=== PATIENT | male | born 1950 | race Caucasian/White ===

== ENCOUNTER 2022-01-15 09:02 | Outpatient (CLI) | payer MEDICARE, SELFPAY ==
[2022-01-15 19:46] LABS: Alanine Aminotransferase 24 U/L (6-50); Albumin Level 4.6 g/dL (3.5-5.1); Alkaline Phosphatase 68 U/L (38-126); Anion Gap 14 mmol/L (8-16); Aspartate Amino Transferase 29 U/L (17-59); Bilirubin,Total 0.9 mg/dL (0.2-1.3); Blood Urea Nitrogen 19 mg/dL (9-20); Calcium 9.5 mg/dL (8.4-10.2); Carbon Dioxide 23 mmol/L (22-30); Chloride 101 mmol/L (98-107); Cholesterol 140 mg/dL (0-200); Estimated Glomerular Filt Rate 54; Glucose 100 mg/dL (65-110); HDL Direct 41 mg/dL; Potassium 3.3 mmol/L (3.4-5.0); Sodium 138 mmol/L (137-145); Triglycerides 95 mg/dL (<150)
[2022-01-15 20:01] LABS: LDL Cholesterol Direct 70 mg/dL
== END 2022-01-15 09:03 | disposition home or self-care (01) ==
PROVIDERS: PCP Family Medicine; Visit Provider Nurse Practitioner Family
DX: E78.5 Hyperlipidemia, unspecified (principal); I10 Essential (primary) hypertension
CPT/HCPCS: 36415; 80053; 80061

== ENCOUNTER 2022-02-11 08:47 | Outpatient (CLI) | payer MEDICARE, SELFPAY ==
[2022-02-11 19:50] LABS: Anion Gap 11 mmol/L (8-16); Blood Urea Nitrogen 15 mg/dL (9-20); Calcium 9.3 mg/dL (8.4-10.2); Carbon Dioxide 25 mmol/L (22-30); Chloride 104 mmol/L (98-107); Estimated Glomerular Filt Rate 60; Glucose 97 mg/dL (65-110); Potassium 3.9 mmol/L (3.4-5.0); Sodium 140 mmol/L (137-145)
== END 2022-02-11 08:48 | disposition home or self-care (01) ==
PROVIDERS: PCP Family Medicine; Visit Provider Nurse Practitioner Family
DX: E87.6 Hypokalemia (principal)
CPT/HCPCS: 36415; 80048

== ENCOUNTER 2022-07-19 09:32 | Outpatient (CLI) | payer MEDICARE, SELFPAY ==
[2022-07-19 18:15] LABS: Basophils Absolute Auto 0.1 K/mm3 (0.0-0.1); Basophils Percent Auto 1.6 % (0.2-1.2); Eosinophils Absolute Auto 0.3 K/mm3 (0-0.3); Eosinophils Percent Auto 3.8 % (0-4.4); Hemoglobin 16.1 g/dL (14.0-18.0); Immature Granulocyte Absolute 0.03 K/mm3 (0.00-0.031); Immature Granulocyte Percent A 0.3 % (0-0.5); Lymphocytes Absolute Auto 2.82 K/mm3 (0.9-3.2); Lymphocytes Percent Auto 31.3 % (18.3-44.2); Mean Corpuscular Hemoglobin 31.1 pg (26-34); Monocytes Absolute Auto 0.9 K/mm3 (0.1-0.6); Neutrophils Absolute Auto 4.8 K/mm3 (1.3-6.7); Platelet Count Result 184 k/mm3 (150-375); Red Blood Count 5.17 M/mm3 (4.6-6.20); Red Cell Distribution Width 13.3 % (11.5-14.5)
[2022-07-19 18:47] LABS: Hemoglobin A1C 5.7 % (<5.7)
[2022-07-19 19:00] LABS: Alanine Aminotransferase 26 U/L (6-50); Albumin Level 4.4 g/dL (3.5-5.1); Alkaline Phosphatase 65 U/L (38-126); Anion Gap 4 mmol/L (8-16); Aspartate Amino Transferase 33 U/L (17-59); Bilirubin,Total 1.3 mg/dL (0.2-1.3); Blood Urea Nitrogen 18 mg/dL (9-20); Calcium 9.3 mg/dL (8.4-10.2); Carbon Dioxide 34 mmol/L (22-30); Chloride 100 mmol/L (98-107); Cholesterol 152 mg/dL (0-200); Estimated Glomerular Filt Rate 60; Glucose 102 mg/dL (65-110); HDL Direct 39 mg/dL; Potassium 3.9 mmol/L (3.4-5.0); Sodium 138 mmol/L (137-145); Triglycerides 104 mg/dL (<150)
[2022-07-19 19:21] LABS: LDL Cholesterol Direct 84 mg/dL
== END 2022-07-19 09:33 | disposition home or self-care (01) ==
LOC: ANHGOSHLAB 09:33
PROVIDERS: PCP Family Medicine; Visit Provider Nurse Practitioner Family
DX: I10 Essential (primary) hypertension (principal); E78.5 Hyperlipidemia, unspecified; R73.03 Prediabetes
CPT/HCPCS: 36415; 80053; 80061; 83036; 84443; 85025

== ENCOUNTER 2023-01-22 09:39 | Outpatient (CLI) | payer MEDICARE, SELFPAY ==
[2023-01-22 18:53] LABS: Basophils Absolute Auto 0.1 K/mm3 (0.0-0.1); Basophils Percent Auto 1.4 % (0.2-1.2); Eosinophils Absolute Auto 0.3 K/mm3 (0-0.3); Eosinophils Percent Auto 2.8 % (0-4.4); Hematocrit 47.4 % (42.0-52.0); Immature Granulocyte Absolute 0.02 K/mm3 (0.00-0.031); Immature Granulocyte Percent A 0.2 % (0-0.5); Lymphocytes Percent Auto 27.5 % (18.3-44.2); Mean Corpuscular HGB Conc 33.8 g/dl (32-36); Mean Corpuscular Volume 91.9 fl (80-100); Mean Platelet Volume 11.1 fl (7.4-10.4); Monocytes Absolute Auto 0.8 K/mm3 (0.1-0.6); Monocytes Percent Auto 8.5 % (2.6-8.5); Neutrophils Absolute Auto 5.6 K/mm3 (1.3-6.7); Neutrophils Percent Auto 59.6 % (45.5-73.1); Platelet Count Result 200 k/mm3 (150-375); Red Blood Count 5.16 M/mm3 (4.6-6.20); Red Cell Distribution Width 13.4 % (11.5-14.5); White Blood Count 9.5 K/mm3 (4.5-10.0)
[2023-01-22 19:54] LABS: Alanine Aminotransferase 33 U/L (6-50); Albumin Level 4.7 g/dL (3.5-5.1); Alkaline Phosphatase 61 U/L (38-126); Anion Gap 6 mmol/L (8-16); Aspartate Amino Transferase 47 U/L (17-59); Blood Urea Nitrogen 16 mg/dL (9-20); Calcium 9.6 mg/dL (8.4-10.2); Carbon Dioxide 32 mmol/L (22-30); Chloride 99 mmol/L (98-107); Cholesterol 152 mg/dL (0-200); Estimated Glomerular Filt Rate 60; Glucose 107 mg/dL (65-110); HDL Direct 46 mg/dL; Potassium 4.1 mmol/L (3.4-5.0); Sodium 137 mmol/L (137-145); Triglycerides 88 mg/dL (<150)
[2023-01-22 20:04] LABS: LDL Cholesterol Direct 80 mg/dL
[2023-01-22 20:25] LABS: Hemoglobin A1C 5.5 % (<5.7)
[2023-01-26 14:43] LABS: Vitamin D 1,25 (OH)2 Total 38 pg/mL (18-72); Vitamin D2 1,25 (OH)2 <8 pg/mL; Vitamin D3 1,25 (OH)2 38 pg/mL
== END 2023-01-22 09:40 | disposition home or self-care (01) ==
PROVIDERS: PCP Family Medicine; Visit Provider Nurse Practitioner Family
DX: E55.9 Vitamin D deficiency, unspecified (principal); E11.9 Type 2 diabetes mellitus without complications; I10 Essential (primary) hypertension
CPT/HCPCS: 36415; 80053; 80061; 82652; 83036; 85025

== ENCOUNTER 2023-04-14 12:15 | Outpatient (CLI) | payer MEDICARE, SELFPAY ==
--- NOTE | 2023-04-14 12:36 | ECG_ITS ---
Measurements Intervals Fisher Rate: 82 P: 56 TN: 214 QRS: -8 QRSD: 153 T: 80 QT: 396 QTc: 463 Interpretive Statements SINUS RHYTHM WITH FIRST DEGREE AV BLOCK LEFT BUNDLE BRANCH BLOCK ABNORMAL ECG NO PREVIOUS ECG AVAILABLE FOR COMPARISON Electronically Signed On 04-14-2023 12:52:37 SCREW MACHINE SET UP OPERATOR TOOL by Warren Bartholomew D.O.
[2023-04-14 13:49] LABS: Anion Gap 10 mmol/L (8-16); Blood Urea Nitrogen 15 mg/dL (9-20); Calcium 9.2 mg/dL (8.4-10.2); Carbon Dioxide 26 mmol/L (22-30); Chloride 102 mmol/L (98-107); Estimated Glomerular Filt Rate 59; Glucose 117 mg/dL (65-110); Potassium 3.5 mmol/L (3.4-5.0); Sodium 138 mmol/L (137-145)
== END 2023-04-14 12:16 | disposition home or self-care (01) ==
LOC: ANHSURGERY 12:20
PROVIDERS: Anesthesiology; PCP Family Medicine; Visit Provider Plastic Surgery
DX: Z01.818 Encounter for other preprocedural examination (principal); I10 Essential (primary) hypertension
CPT/HCPCS: 36415; 80048; 93005

== ENCOUNTER 2023-04-16 00:53 | Day surgery (SDC) | payer MEDICARE, SELFPAY ==
--- NOTE | 2023-04-14 10:07 | PC.NURSE ---
Report to the Outpatient Waiting Room, entrance under the green pavilion located off [facility], at time __0600 on date ___04/16/23____. Planned Procedure Time: _0730 . Time changes happen often and if your time is changed the preop area will call you the afternoon before. - You and your visitor will be asked to self-screen and do not enter if you have any COVID symptoms. - A mask is optional within the hospital at this time. Patients may have clear liquids (water, carbonated beverages, clear teas, apple juice) until 3 hours prior to surgery( 4:30 AM ) with a maximum of 20 ounces. - No food from midnight until time of surgery - Infants may have breast milk until 4 hours before surgery, infant formula 6 hours prior to surgery. - Children will be allowed to drink immediately following surgery. If applicable, please bring a bottle or sippy cup to assist with drinking. Juice, water, soda, and popsicles are readily available. For infants on formula, please bring formula the day of surgery. Pacifiers are allowed. Take the following medications with a SIP of water the morning of surgery: ___NONE DO NOT STOP ANY OF YOUR OTHER PRESCRIPTION MEDICATIONS PRIOR TO SURGERY ?EXCEPT THE FOLLOWING Medications to discontinue per physician HOLD MULTIVITAMIN 3 DAYS PRE OP LAST DOSE 04/13/23 Please no make-up, nail macedonian, hairspray, perfume, deodorant, or body powder the day of surgery. No jewelry (including any body piercings) or valuables the day of surgery, leave them at home. Please take a shower or bath the night before, or the morning of, surgery with an antibacterial soap. Wear comfortable, loose fitting clothing. Children are encouraged to wear pajamas. - Jewelry must be removed prior to entering the operating room. Rings and piercings that are not removed may be cut off. - The hospital will not accept responsibility for valuables. - Please leave all valuables, including medications, at home the day of surgery. If you are going home after surgery, a licensed semi driver must drive you home. - NO public transportation without another adult if you receive anesthesia. - We recommend that an adult stay with you for 24 hours following discharge. - We also recommend that you do not drive, make important decision, drink alcoholic beverages, or take any drugs that were not prescribed by your health care provider for at least 24 hours after your discharge time. Follow any additional instructions given to you from your surgeon. If you or anyone in your household have experienced Covid symptoms in the past week, please notify your surgeon or the nurse liaison at the phone number below for possible testing. Telephone instructions given to __PATIENT and asked if any additional questions and then verbalized understanding. Patient advised to call surgeon office or pre surgery nurse liaison [phone] if any additional questions.
[2023-04-14 10:19] VITALS: BMI 21.9
[2023-04-16 06:14] VITALS: BP 125/71; PULSE 89; RESP 18; TEMP 36.3; O2SAT 98
--- NOTE | 2023-04-16 06:55 | P.PNAN_ITS ---
Anes - Initial Pre Proc Eval Procedure: Operation Date: 04/16/23 07:30 Proposed Procedures p Right Partial Palmar Fasciectomy - Gregorio Camp MD Date/Time: 04/16/23 06:55 Surgeon: Gregorio Camp MD Pre Op Diagnosis: Dupuytren's contracture Rt 5th Finger Patient Data Age: 73 Gender: M Height: 1.79 m Weight: 70.35 kg Allergies Allergy/AdvReac Type Severity Reaction Status Date / Time No Known Allergies Allergy Unknown Verified 04/14/23 10:02 Home Medications Medication Instructions Recorded Confirmed Type multivitamin 1 tablet PO DAILY 01/11/20 04/14/23 History simvastatin 20 mg tablet 20 mg PO DAILY #90 tabs 01/22/23 04/14/23 Rx valsartan 160 1 tablet PO DAILY #90 tabs 01/22/23 04/14/23 Rx mg-hydrochlorothiazide 25 mg tablet Patient hx anesthesia problems: none Family hx anesthesia problems: none Results Review: All pre-operative results and documents have been reviewed as part of the pre- operative evaluation. [facility] Past Medical History Medical History Benign essential hypertension Combined hyperlipidemia Former smoker History of prostate cancer Prediabetes Surgical History Surgical History History of prostatectomy (~03/2008) Social History Social History Social History: Caffeine-very little 3 cups weekly Smoking packs per day: 1 Smoking cigarettes per day: 20.0 Years smoked: 50 Smoking pack-years: 50.00 Smoking status: Current every day smoker Tobacco type: cigarettes Second hand tobacco smoke exposure: No Alcohol intake: current Substance use: never Substance use type: does not use Lack of Transportation: No Lack of Food: Never True Current Housing: I Have Housing Concerned About Future Housing: No Difficulty Paying Gas/Electric Bills: No Difficulty Paying for Meds: No Currently Unemployed: No Education: Associate Degree Difficulty w/ Childcare or Family Care: No Living arrangements: with family Occupation/Education: retired Gender identity (if verbalized by the patient): Male Spiritual care concerns: No Agree to blood products: Yes Anes - Eval Final PreProcedure Day of Procedure 04/16/23 06:55 Patient weight: normal Heart: regular rate and rhythm Lungs: clear to auscultation Airway: Mallampati scale class II Neurological: alert and oriented Last oral intake: >/= 8 hours ASA classification: III Emergent: no Anesthetic plan: proceed Anesthesia type and monitoring: general GIVS and standard monitoring Results Review: All pre-operative results and documents have been reviewed as part of the pre- operative evaluation. Informed Consent: The patient's anesthetic plan and its attendant risks and benefits were discussed with the patient/family/POA. Questions were solicited and answers provided to the satisfaction of the patient/family/POA.
--- NOTE | 2023-04-16 07:09 | WPDHPUPDATE1 ---
History and Physical Update Update Date/Time: 04/16/23 07:09 History and Physical has been reviewed, including an updated exam of the patient. There are NO changes in the patient's condition. Risks, benefits, and alternatives have been discussed and questions answered. Patient agrees to proceed with procedure.
[2023-04-16] MEDS: LACTATED RINGERS 1,000 ML 30 ML IV CONT ×2 (07:11→08:47)
[2023-04-16] MEDS: LIDO 1%/EPINEPHRINE 1:100,000 20 ML VIAL INFILTRATE (07:49)
[2023-04-16] MEDS: BACITRACIN OINTMENT 15 GM TUBE 1 APPLIC TOPICAL (08:16)
[2023-04-16 08:47] VITALS: BP 108/62; PULSE 94; RESP 12; TEMP 36.2; O2SAT 98
[2023-04-16 09:00] VITALS: BP 108/84; PULSE 88; RESP 17; O2SAT 95
--- NOTE | 2023-04-16 09:02 | P.OP_ITS ---
Procedure Note - Detailed Date of Procedure 04/16/23 Pre-op Diagnosis Dupuytren's contracture Rt 5th Finger Post-op Diagnosis Same Procedure Performed Right partial palmar fasciectomy Surgeon Gregorio Camp MD Scow Derrick Operator Ruddy Jiang MAC Indications Contractures of the and the proximal interphalangeal joints of the right 5th finger Description of Procedure The site was marked on the hand in the holding area. He was then taken to the operating room placed supine on the operating table. He was given IV sedation with an LMA. The right upper extremity was prepped draped in usual fashion a pneumatic tourniquet was applied. The hand was examined markings made for the incision. The time-out was held and confirmed. The extremity was exsanguinated with an Kit wrap and the tourniquet was inflated to 250 mmHg.. A small beltran sverse incision was made proximal to the distal palmar crease. The pretendinous cord was dissected both directions and finally released. The neurovascular bundle to the radial side was identified and preserved. Some palmar fascia directed to the ring finger was also resected. Our 2nd incision was a midline volar 5th digit incision that was extended proximally in Hermilo fashion but did not connect to the former incision. Skin flaps were elevated. The neurovascular bundles identified and preserved. Multiple cords were identified including and pretendinous, ulnar retrovascular, spiral cords to both sides. As we resected these, the tendon to the abductor digiti minimi was left intact. The digit could be fully extended. The tourniquet was released and wounds closed with 4-0 nylon suture. A soft bandage was applied. Patient was discharged from the operating room stable condition. He is being discharged with instructions in wound care and follow-up and a prescription for hydrocodone 5/325 5. Estimated Blood Loss 6 Tourniquet Time Total Tourniquet Time: 40 Drains No Packing No Pathology None sent Complications No immediate complications Condition Stable Disposition PACU
[2023-04-16 09:14] VITALS: BP 123/72; PULSE 87; RESP 17; O2SAT 95
[2023-04-16] MEDS: ACETAMINOPHEN 500 MG TABLET PO (09:29)
[2023-04-16 09:45] VITALS: BP 122/82; PULSE 92; RESP 18
== END 2023-04-16 10:04 | disposition home or self-care (01) ==
PROVIDERS: PCP Family Medicine; Visit Provider Plastic Surgery
PROC: (CPT 26045; principal; 2023-04-16 07:30)
DX: M72.0 Palmar fascial fibromatosis [Dupuytren] (principal); I10 Essential (primary) hypertension; E78.2 Mixed hyperlipidemia; R73.03 Prediabetes; Z85.46 Personal history of malignant neoplasm of prostate; F17.210 Nicotine dependence, cigarettes, uncomplicated
CPT/HCPCS: 26123; 36415; 80048; 93005; A9270; J1100; J1596; J2250; J2371; J2405; J2704; J3010; J7120

== ENCOUNTER 2023-06-11 01:06 | Day surgery (SDC) | payer MEDICARE, SELFPAY ==
--- NOTE | 2023-06-02 10:00 | PC.NURSE ---
Report to the Outpatient Waiting Room, entrance under the green pavilion located off [facility], at time _0600 on date __06/11/23 . Planned Procedure Time: ___729 . Time changes happen often and if your time is changed the preop area will call you the afternoon before. - You and your visitor will be asked to self-screen and do not enter if you have any COVID symptoms. - A mask is optional within the hospital at this time. Patients may have clear liquids (water, carbonated beverages, clear teas, apple juice) until 3 hours prior to surgery( 4:30 AM) with a maximum of 20 ounces. - No food from midnight until time of surgery - Infants may have breast milk until 4 hours before surgery, infant formula 6 hours prior to surgery. - Children will be allowed to drink immediately following surgery. If applicable, please bring a bottle or sippy cup to assist with drinking. Juice, water, soda, and popsicles are readily available. For infants on formula, please bring formula the day of surgery. Pacifiers are allowed. Take the following medications with a SIP of water the morning of surgery: NONE DO NOT STOP ANY OF YOUR OTHER PRESCRIPTION MEDICATIONS PRIOR TO SURGERY ?EXCEPT THE FOLLOWING Medications to discontinue per physician ___HOLD MULTIVITAMIN 3 DAYS PRE OP.LAST DOSE 06/07/23 Please no make-up, nail faroese, hairspray, perfume, deodorant, or body powder the day of surgery. No jewelry (including any body piercings) or valuables the day of surgery, leave them at home. Please take a shower or bath the night before, or the morning of, surgery with an antibacterial soap. Wear comfortable, loose fitting clothing. Children are encouraged to wear pajamas. - Jewelry must be removed prior to entering the operating room. Rings and piercings that are not removed may be cut off. - The hospital will not accept responsibility for valuables. - Please leave all valuables, including medications, at home the day of surgery. If you are going home after surgery, a licensed wedding transportation driver must drive you home. - NO public transportation without another adult if you receive anesthesia. - We recommend that an adult stay with you for 24 hours following discharge. - We also recommend that you do not drive, make important decision, drink alcoholic beverages, or take any drugs that were not prescribed by your health care provider for at least 24 hours after your discharge patricia Follow any additional instructions given to you from your surgeon. If you or anyone in your household have experienced Covid symptoms in the past week, please notify your surgeon or the nurse liaison at the phone number below for possible testing. Telephone instructions given to ___PATIENT and asked if any additional questions and then verbalized understanding. Patient advised to call surgeon office or pre surgery nurse liaison [phone] if any additional questions.
[2023-06-02 10:04] VITALS: BMI 21.9
[2023-06-11 06:06] VITALS: BP 127/71; PULSE 82; RESP 20; TEMP 36.9; O2SAT 97
[2023-06-11] MEDS: LACTATED RINGERS 1,000 ML 30 ML IV CONT (06:30)
--- NOTE | 2023-06-11 07:05 | WPDANESEPPF ---
Anes - Initial Pre Proc Eval Procedure: Operation Date: 06/11/23 07:30 Proposed Procedures p Left Partial Palmar Fasciectomy - Gregorio Camp MD Date/Time: 06/11/23 07:05 Surgeon: Gregorio Camp MD Pre Op Diagnosis: duputrens contracture left fifth finger Patient Data Age: 73 Gender: M Height: 1.79 m Weight: 72 kg Last Vital Signs Temp 98.5 F 06/11/23 06:06 Pulse 82 06/11/23 06:06 Resp 20 06/11/23 06:06 BP 127/71 06/11/23 06:06 Pulse Ox 97 06/11/23 06:06 O2 Del Method Room Air 06/11/23 06:06 Allergies Allergy/AdvReac Type Severity Reaction Status Date / Time No Known Allergies Allergy Unknown Verified 06/11/23 06:05 Home Medications Medication Instructions Recorded Confirmed Type multivitamin 1 tablet PO DAILY 01/11/20 06/11/23 History simvastatin 20 mg tablet 20 mg PO DAILY #90 tabs 01/22/23 06/11/23 Rx valsartan 160 1 tablet PO DAILY #90 tabs 01/22/23 06/11/23 Rx mg-hydrochlorothiazide 25 mg tablet hydrocodone 5 mg-acetaminophen 325 1 tablet PO Q6H PRN pain #5 tabs 04/16/23 06/02/23 Rx mg tablet Patient hx anesthesia problems: none Family hx anesthesia problems: none Results Review: All pre-operative results and documents have been reviewed as part of the pre-operative evaluation. [facility] Past Medical History Medical History Benign essential hypertension Combined hyperlipidemia Former smoker History of prostate cancer Prediabetes Surgical History Surgical History History of prostatectomy (~03/2008) Social History Social History Social History: Caffeine-very little 3 cups weekly Smoking packs per day: 1 Smoking cigarettes per day: 20.0 Years smoked: 50 Smoking pack-years: 50.00 Smoking status: Current every day smoker Tobacco type: cigarettes Second hand tobacco smoke exposure: No Alcohol intake: current Substance use: never Substance use type: does not use Lack of Transportation: No Lack of Food: Never True Current Housing: I Have Housing Concerned About Future Housing: No Difficulty Paying Gas/Electric Bills: No Difficulty Paying for Meds: No Currently Unemployed: No Education: Associate Degree Difficulty w/ Childcare or Family Care: No Living arrangements: with family Occupation/Education: retired Gender identity (if verbalized by the patient): Male Spiritual care concerns: No Agree to blood products: Yes Anes - Eval Final PreProcedure Day of Procedure 06/11/23 07:05 Patient weight: normal Heart: regular rate and rhythm Lungs: clear to auscultation Airway: Mallampati scale class III Neurological: alert and oriented Last oral intake: >/= 8 hours ASA classification: III Emergent: no Anesthetic plan: proceed Anesthesia type and monitoring: general LMA and standard monitoring Results Review: All pre-operative results and documents have been reviewed as part of the pre-operative evaluation. Informed Consent: The patient's anesthetic plan and its attendant risks and benefits were discussed with the patient/family/POA. Questions were solicited and answers provided to the satisfaction of the patient/family/POA.
--- NOTE | 2023-06-11 07:09 | WPDHPUPDATE1 ---
History and Physical Update Update Date/Time: 06/11/23 07:09 History and Physical has been reviewed, including an updated exam of the patient. There are NO changes in the patient's condition. Risks, benefits, and alternatives have been discussed and questions answered. Patient agrees to proceed with procedure.
[2023-06-11] MEDS: LIDO 1%/EPINEPHRINE 1:100,000 20 ML VIAL INFILTRATE (07:49)
[2023-06-11 09:13] VITALS: BP 106/42; PULSE 68; RESP 16; O2SAT 97
[2023-06-11 09:35] VITALS: BP 106/42; PULSE 68; RESP 20
--- NOTE | 2023-06-11 09:36 | W.PM.PROC2 ---
Procedure Note - Detailed Date of Procedure 06/11/23 Pre-op Diagnosis duputrens contracture left fifth finger Post-op Diagnosis Same Procedure Performed Left partial palmar fasciectomy of the hand and small finger Surgeon Gregorio Camp MD Circulation Analyst Lalo Anesthesia MAC Findings Prominent pretendinous and lateral cords Description of Procedure The left hand and small finger were marked on patient in the holding brooks this consent. He was then rolled to the operating room where he was placed supine on the operating table. He was given IV sedation and the left upper extremity was prepped and draped in usual fashion. A time-out was held confirmed. The sites were marked the incisions and locally infiltrated with 1% lidocaine with epinephrine. The extremity was exsanguinated and the tourniquet inflated 250 mmHg. The incision was made 1st in palm. The pretendinous cords leading to the ring and small finger were identified and removed. A volar midline incision crossing the and P and interphalangeal joints and small finger was made and skin flaps carefully elevated both sides. The neurovascular bundles leading to the ring and small finger were identified and followed throughout the length of the finger. The large pretendinous cord was released in the palm and followed out the digit. There were no spiral cords but there were prominent lateral cords. These were released on both sides. The flexor tendon sheath was left intact. The finger could be easily extended to 0?. The tourniquet was released. Two Z-plasties were performed on the small finger and closed with running or interrupted 4-0 nylon suture. Appropriate bandage was applied to the small finger and the palm. Patient was discharged from the operating room stable condition. Estimated Blood Loss 10 Tourniquet Time Total Tourniquet Time: 53 Drains No Packing No Pathology None sent Complications No immediate complications Condition Stable Disposition Same day
[2023-06-11 10:00] VITALS: BP 120/74; PULSE 72; RESP 20
== END 2023-06-11 10:07 | disposition home or self-care (01) ==
PROVIDERS: PCP Family Medicine; Visit Provider Plastic Surgery
PROC: (CPT 26045; principal; 2023-06-11 07:30)
DX: M72.0 Palmar fascial fibromatosis [Dupuytren] (principal); I10 Essential (primary) hypertension; E78.2 Mixed hyperlipidemia; R73.03 Prediabetes; F17.210 Nicotine dependence, cigarettes, uncomplicated; F10.90 Alcohol use, unspecified, uncomplicated; Z85.46 Personal history of malignant neoplasm of prostate; Z79.891 Long term (current) use of opiate analgesic; Z79.899 Other long term (current) drug therapy
CPT/HCPCS: 26123; A9270; J1100; J2250; J2371; J2405; J2704; J3010; J7120

== ENCOUNTER 2024-01-28 12:37 | Outpatient (CLI) | payer MEDICARE, SELFPAY ==
[2024-01-28 16:41] LABS: Basophils Absolute Auto 0.1 K/mm3 (0.0-0.1); Basophils Percent Auto 1.3 % (0.2-1.2); Eosinophils Absolute Auto 0.2 K/mm3 (0-0.3); Eosinophils Percent Auto 2.1 % (0-4.4); Hematocrit 48.8 % (42.0-52.0); Hemoglobin 16.6 g/dL (14.0-18.0); Immature Granulocyte Absolute 0.03 K/mm3 (0.00-0.031); Immature Granulocyte Percent A 0.3 % (0-0.5); Lymphocytes Absolute Auto 2.82 K/mm3 (0.9-3.2); Lymphocytes Percent Auto 28.5 % (18.3-44.2); Mean Corpuscular Hemoglobin 31.1 pg (26-34); Mean Corpuscular Volume 91.4 fl (80-100); Mean Platelet Volume 11.1 fl (7.4-10.4); Monocytes Percent Auto 10.4 % (2.6-8.5); Neutrophils Absolute Auto 5.7 K/mm3 (1.3-6.7); Neutrophils Percent Auto 57.4 % (45.5-73.1); Platelet Count Result 201 k/mm3 (150-375); Red Blood Count 5.34 M/mm3 (4.6-6.20); Red Cell Distribution Width 12.9 % (11.5-14.5); White Blood Count 9.9 K/mm3 (4.5-10.0)
[2024-01-28 17:06] LABS: Vitamin D 25 Hydroxy 44.9 ng/mL
[2024-01-28 17:20] LABS: Thyroid Stimulating Hormone Reflex 0.995 uIU/mL (0.465-4.68)
[2024-01-28 19:36] LABS: Alanine Aminotransferase 23 U/L (6-50); Albumin Level 4.7 g/dL (3.5-5.1); Alkaline Phosphatase 74 U/L (38-126); Anion Gap 9 mmol/L (4-12); Aspartate Amino Transferase 46 U/L (17-59); Bilirubin,Total 1.1 mg/dL (0.2-1.3); Blood Urea Nitrogen 24 mg/dL (9-20); Calcium 9.7 mg/dL (8.4-10.2); Carbon Dioxide 29 mmol/L (22-30); Chloride 99 mmol/L (98-107); Cholesterol 148 mg/dL (0-200); Estimated Glomerular Filt Rate 50; Glucose 98 mg/dL (65-110); HDL Direct 42 mg/dL; Potassium 4.1 mmol/L (3.4-5.0); Sodium 137 mmol/L (137-145); Triglycerides 82 mg/dL (<150)
[2024-01-28 19:48] LABS: LDL Cholesterol Direct 74 mg/dL
[2024-01-28 20:07] LABS: Prostate Specific Antigen < 0.1 ng/mL (< OR = 4.0)
[2024-01-28 21:14] LABS: Hemoglobin A1C 5.8 % (<5.7)
== END 2024-01-28 12:38 | disposition home or self-care (01) ==
LOC: ANHGOSHLAB 12:38
PROVIDERS: PCP Family Medicine; Visit Provider Family Medicine
DX: R73.03 Prediabetes (principal); Z00.00 Encounter for general adult medical examination without abnormal findings; Z87.891 Personal history of nicotine dependence; I10 Essential (primary) hypertension; E55.9 Vitamin D deficiency, unspecified; Z12.5 Encounter for screening for malignant neoplasm of prostate; E78.5 Hyperlipidemia, unspecified; E53.8 Deficiency of other specified B group vitamins
CPT/HCPCS: 36415; 80053; 80061; 82306; 82607; 83036; 84153; 84443; 85025; G0103

== ENCOUNTER 2024-07-27 10:15 | Outpatient (CLI) | payer MEDICARE, SELFPAY ==
[2024-07-27 11:31] LABS: Hemoglobin A1C 5.9 % (<5.7)
[2024-07-27 11:44] LABS: Alanine Aminotransferase 25 U/L (6-50); Albumin Level 4.6 g/dL (3.5-5.1); Alkaline Phosphatase 73 U/L (38-126); Anion Gap 10 mmol/L (4-12); Aspartate Amino Transferase 28 U/L (17-59); Bilirubin,Total 1.2 mg/dL (0.2-1.3); Blood Urea Nitrogen 18 mg/dL (9-20); Calcium 9.5 mg/dL (8.4-10.2); Carbon Dioxide 27 mmol/L (22-30); Chloride 101 mmol/L (98-107); Estimated Glomerular Filt Rate > 60; Glucose 102 mg/dL (65-110); Potassium 3.5 mmol/L (3.4-5.0); Sodium 138 mmol/L (137-145)
== END 2024-07-27 10:16 | disposition home or self-care (01) ==
LOC: ANHGOSHLAB 10:16
PROVIDERS: PCP Family Medicine; Visit Provider Family Medicine
DX: R73.03 Prediabetes (principal); I10 Essential (primary) hypertension
CPT/HCPCS: 36415; 80053; 83036

== ENCOUNTER 2025-02-08 09:47 | Outpatient (CLI) | payer MEDICARE, SELFPAY ==
[2025-02-08 13:06] LABS: Hematocrit 49.2 % (42.0-52.0); Hemoglobin 16.5 g/dL (14.0-18.0); Immature Granulocyte Percent A 0.4 % (0-0.5); Lymphocytes Absolute Auto 2.84 K/mm3 (0.9-3.2); Mean Corpuscular HGB Conc 33.5 g/dl (32-36); Mean Corpuscular Hemoglobin 30.6 pg (26-34); Mean Corpuscular Volume 91.3 fl (80-100); Nucleated Red Blood Cells Absolute Auto 0.000 K/mm3 (0.0-0.012); Nucleated Red Blood Cells Perc 0.0 % (0.0-0.2); Platelet Count Result 201 k/mm3 (150-375); Red Blood Count 5.39 M/mm3 (4.6-6.20); White Blood Count 11.3 K/mm3 (4.5-10.0)
[2025-02-08 13:16] LABS: Alanine Aminotransferase 30 U/L (6-50); Albumin Level 4.8 g/dL (3.5-5.1); Alkaline Phosphatase 72 U/L (38-126); Anion Gap 9 mmol/L (4-12); Aspartate Amino Transferase 69 U/L (17-59); Bilirubin,Total 1.0 mg/dL (0.2-1.3); Blood Urea Nitrogen 18 mg/dL (9-20); Calcium 9.8 mg/dL (8.4-10.2); Carbon Dioxide 28 mmol/L (22-30); Chloride 101 mmol/L (98-107); Cholesterol 164 mg/dL (0-200); Estimated Glomerular Filt Rate 56; Glucose 104 mg/dL (65-110); HDL Direct 45 mg/dL; Potassium 4.5 mmol/L (3.4-5.0); Sodium 138 mmol/L (137-145); Total Protein 8.2 g/dL (6.3-8.2); Triglycerides 106 mg/dL (<150)
[2025-02-08 18:52] LABS: Hemoglobin A1C 5.4 % (<5.7)
== END 2025-02-08 09:48 | disposition home or self-care (01) ==
PROVIDERS: PCP Family Medicine; Visit Provider Nurse Practitioner Family
DX: E55.9 Vitamin D deficiency, unspecified (principal); I10 Essential (primary) hypertension; R73.03 Prediabetes; E78.5 Hyperlipidemia, unspecified
CPT/HCPCS: 36415; 80053; 80061; 82306; 83036; 85025